=== PATIENT | female | born 1940 | race Hispanic/Latino ===

== ENCOUNTER 2017-08-28 08:47 | Outpatient (CLI) | payer MEDICARE ==
--- NOTE | 2017-08-28 09:40 | XRay Report ---
Bilateral knee: History: Bilateral knee pain. Findings: Bilateral total knee noted. The femoral and the tibial component is in anatomic alignment. The patellofemoral region appears stable. No evidence of joint effusion. No evidence of fracture or significant soft tissue calcification. Impression: Stable right and left knee.
== END 2017-08-28 08:48 | disposition home or self-care (01) ==
LOC: SPVIMAG 08:47
PROVIDERS: ATTEND Orthopaedic Surgery Sports Medicine
DX: M25.561 Pain in right knee (principal); M25.562 Pain in left knee